=== PATIENT | female | born 1995 | race African-American/Black ===

== ENCOUNTER 2020-11-22 17:57 | Inpatient (IN) | payer MEDICAID ==
[~2020-11-22] VITALS: Ht 170.2 cm; Wt 93.0 kg
[2020-11-22] MEDS ORDERED: AMPICILLIN 2GM in NS 100ML 100 ML IV SCH (20:45)
[2020-11-22] MEDS ORDERED: NALOXONE HCL 0.4 MG/ML 1ML VIAL IM PRN (20:45)
[2020-11-22] MEDS ORDERED: LIDOCAINE HCL 1% 20ML VIAL (Pyxis) INJ INFIL SCH (20:45)
[2020-11-22] MEDS ORDERED: METHYLERGONOVINE MALEATE 0.2 MG/ML IM PRN (20:45)
[2020-11-22] MEDS ORDERED: CARBOPROST TROMETHAMINE 250 MCG/ML AMPUL IM PRN (20:45)
[2020-11-22] MEDS: LACTATED RINGERS 1,000 ML IV SCH ×2 (21:50→23:55)
[2020-11-22] MEDS: DEXT 5%/LR + PITOCIN 20UNITS/L 1,000 ML IV SCH (21:58)
[2020-11-22 23:00] LABS: CLARITY URINE CLEAR (CLEAR); COLOR URINE YELLOW (YELLOW); KETONES URINE NEGATIVE (NEGATIVE); LEUKOCYTE ESTERASE URINE NEGATIVE (NEGATIVE); NITRITE URINE NEGATIVE (NEGATIVE); OCCULT BLOOD URINE NEGATIVE (NEGATIVE); PH URINE 7.5 (4.5-8.0); PROTEIN URINE NEGATIVE (NEGATIVE); SPECIFIC GRAVITY URINE 1.011 (1.005-1.030)
[2020-11-22 23:14] LABS: BASOPHILS % 0.3 % (0.0-2.0); EOSINOPHILS % 1.3 % (0.0-5.0); HEMATOCRIT. 31.1 % (36.0-48.0); HEMOGLOBIN. 10.7 g/dL (12.0-16.0); LYMPHOCYTES % 21.4 % (20.0-50.0); MEAN CORPUSCULAR HEMOGLOBIN 27.6 pg (28.0-32.0); MEAN CORPUSCULAR VOLUME 79.9 fL (81.0-99.0); MEAN PLATELET VOLUME 8.9 fl (7.4-10.4); MONOCYTES % 8.4 % (2.0-8.0); NEUTROPHILS % 68.6 % (40.0-76.0); PLATELET 162 x1000/uL (130-400); RED BLOOD CELL COUNT 3.89 mill/uL (4.2-5.4); RED CELL DISTRIBUTION WIDTH 16.1 % (11.6-14.6)
[2020-11-22 23:24] LABS: *AMPHETAMINES SCREEN URINE NEGATIVE (NEGATIVE); *BARBITURATES SCREEN URINE NEGATIVE (NEGATIVE); *BENZODIAZEPINES SCREEN URINE NEGATIVE (NEGATIVE); *COCAINE SCREEN URINE NEGATIVE (NEGATIVE); METHADONE URINE SCREEN NEGATIVE (NEGATIVE)
[2020-11-22 23:25] LABS: CANNABINOID URINE SCREEN NEGATIVE (NEGATIVE); OPIATES URINE SCREEN NEGATIVE (NEGATIVE); PHENCYCLIDINE URINE SCREEN NEGATIVE (NEGATIVE)
[2020-11-22 23:34] LABS: INR 0.9; PARTIAL THROMBOPLASTIN TIME 27.1 sec (23.4-31.0); PROTHROMBIN TIME 10.1 sec (9.6-11.0)
[2020-11-23 00:14] LABS: HEPATITIS B SURFACE ANTIGEN NEGATIVE
[2020-11-23] MEDS ORDERED: ROPIVACAINE HCL/PF EPIDURAL 200 ML EPI SCH (00:15)
[2020-11-23] MEDS: LACTATED RINGERS 1,000 ML IV SCH (00:55)
[2020-11-23] MEDS: BUTORPHANOL TARTRATE 2 MG/ML VIAL IV PRN ×2 (01:51→03:49)
[2020-11-23] MEDS ORDERED: AMPICILLIN 1,000 MG in SODIUM CHLORIDE 0.9% 50 ML IV SCH (03:00)
[2020-11-23] MEDS: DEXT 5%/LR + PITOCIN 20UNITS/L 1,000 ML IV SCH (04:48)
[2020-11-23] MEDS ORDERED: DEXT 5%/LR + PITOCIN 20UNITS/L 1,000 ML IV SCH (05:00)
[2020-11-23] MEDS ORDERED: BENZOCAINE/LANOLIN/ALOE VERA SPRAY TOP PRN (05:00)
[2020-11-23] MEDS ORDERED: RHO(D) IMMUNE GLOBULIN 300 MCG/SYR IM PRN (05:00)
[2020-11-23] MEDS ORDERED: IBUPROFEN 400MG TABLET PO PRN (05:00)
[2020-11-23] MEDS ORDERED: PREN-182 PO (05:29)
[2020-11-23] MEDS: IBUPROFEN 800MG TABLET PO PRN ×2 (06:33→16:18)
[2020-11-23 07:45] VITALS: BP 105/48
[2020-11-23] MEDS: PRENATAL VIT/FE FUMARATE/FA TABLET PO SCH (13:01)
[2020-11-23] MEDS: ACETAMINOPHEN WITH CODEINE 300/30MG TABLET PO PRN (13:02)
[2020-11-23 16:25] VITALS: BP 123/71
[2020-11-23 20:00] VITALS: BP 129/75
[2020-11-24] VITALS: BP 128/76
[2020-11-24] MEDS: IBUPROFEN 800MG TABLET PO PRN ×3 (01:34→20:01)
[2020-11-24 04:00] VITALS: BP 125/78
[2020-11-24 07:06] LABS: BASOPHILS % 0.3 % (0.0-2.0); EOSINOPHILS % 3.1 % (0.0-5.0); HEMOGLOBIN. 9.8 g/dL (12.0-16.0); LYMPHOCYTES % 25.4 % (20.0-50.0); MEAN CORPUSCULAR HEMOGLOBIN 27.5 pg (28.0-32.0); MEAN CORPUSCULAR VOLUME 81.5 fL (81.0-99.0); MEAN PLATELET VOLUME 8.7 fl (7.4-10.4); MONOCYTES % 6.7 % (2.0-8.0); NEUTROPHILS % 64.5 % (40.0-76.0); PLATELET 156 x1000/uL (130-400); RED BLOOD CELL COUNT 3.56 mill/uL (4.2-5.4); RED CELL DISTRIBUTION WIDTH 16.2 % (11.6-14.6)
[2020-11-24 08:00] VITALS: BP 127/82
[2020-11-24] MEDS: FERROUS SULFATE 325MG TABLET PO SCH (09:31)
[2020-11-24] MEDS: PRENATAL VIT/FE FUMARATE/FA TABLET PO SCH (09:31)
[2020-11-24] MEDS: ACETAMINOPHEN WITH CODEINE 300/30MG TABLET PO PRN (11:49)
[2020-11-24 16:00] VITALS: BP 99/55
[2020-11-24 20:00] VITALS: BP 115/56
[2020-11-25 03:30] VITALS: BP 105/61
[2020-11-25] MEDS: IBUPROFEN 800MG TABLET PO PRN (06:24)
[2020-11-25] MEDS: FERROUS SULFATE 325MG TABLET PO SCH (07:30)
[2020-11-25] MEDS: PRENATAL VIT/FE FUMARATE/FA TABLET PO SCH (08:12)
[2020-11-25 08:13] VITALS: BP 119/78
[2020-11-25] MEDS ORDERED: IBUP-2030 PO (08:36)
[2020-11-25] MEDS ORDERED: FERR-63 PO (08:36)
== END 2020-11-25 12:15 | disposition home or self-care (01) | DRG 560 ==
LOC: 8 EST LDRP 17:57 → OBSVTOIN 17:57 → 8EST 11-23 07:06
PROVIDERS: ADMIT Obstetrics & Gynecology; ATTEND Obstetrics & Gynecology
PROC: 10E0XZZ Delivery of Products of Conception, External Approach (ICD-10-PCS; principal; 2020-11-23)
PROC: 0HQ9XZZ Repair Perineum Skin, External Approach (ICD-10-PCS; 2020-11-23)
DX: O69.81X0 Labor and delivery complicated by cord around neck, without compression, not applicable or unspecified (principal); Z37.0 Single live birth; D64.9 Anemia, unspecified; O70.0 First degree perineal laceration during delivery; O99.02 Anemia complicating childbirth; Z20.822 Contact with and (suspected) exposure to COVID-19; Z3A.39 39 weeks gestation of pregnancy; Z83.3 Family history of diabetes mellitus; Z82.49 Family history of ischemic heart disease and other diseases of the circulatory system; Z90.49 Acquired absence of other specified parts of digestive tract
CPT/HCPCS: 36415; 76805; 76818; 80305; 81003; 85025; 86592; 86703; 86762; 86850; 86900; 87340; 87426; J0290; J0595; J2590; J2795; J3490